=== PATIENT | female | born 1985 | race Caucasian/White ===

== ENCOUNTER 2016-08-12 15:18 | Emergency (ER) | payer MEDICAID ==
[2016-08-12 15:25] VITALS: BP 110/80
--- NOTE | 2016-08-12 15:29 | ED Physician Documentation ---
PD HPI LOWER EXT INJURY - Stated complaint Stated Complaint: L FT INJ - Chief complaint Chief Complaint: Ext Problem - History obtained from History obtained from: Patient - History of Present Illness PD HPI LOW EXT INJURY LOCATION: Left (Jumped out of bed yesterday and ran down the stairs, no fall. She's had severe pain at the plantar proximal aspect of the left foot since which radiates up the calf and down towards the toes.) Review of Systems Constitutional: denies: Fever, Chills : denies: Now EGA Musculoskeletal: denies: Neck pain, Back pain, Extremity swelling PD PAST MEDICAL HISTORY - Past Medical History Psych: Depression - Past Surgical History Past Surgical History: Yes - Present Medications Home Medications: Ambulatory Orders Medication Instructions Recorded Confirmed HYDROcod/ACETAM 5/325 [[place] 5/325] 1 - 2 ea PO Q6H PRN #15 tablet 08/12/16 Meloxicam [Mobic] 7.5 mg PO BIDWM PRN #15 tablet 08/12/16 - Allergies Allergies/Adverse Reactions: Allergies Allergy/AdvReac Type Severity Reaction Status Date / Time No Known Drug Allergies Allergy Verified 03/29/15 20:55 - Social History Does the pt smoke?: No Smoking Status: Never smoker Does the pt drink ETOH?: Yes Does the pt have substance abuse?: No - Immunizations Immunizations are current?: Yes PD ED PE NORMAL - Vitals Vital signs reviewed: Yes - General General: Alert and oriented X 3, No acute distress - Extremities Extremities: Other (Left foot is tender to the plantar fascia and calcaneus, less so the Achilles tendon, Achilles function is intact. No calf tenderness.) - Neuro Neuro: Alert and oriented X 3, Normal speech - Psych Psych: Normal mood, Normal affect Results - Vitals Vitals: Vital Signs - 24 hr 08/12/16 15:20 Temperature 36.5 C Heart Rate 82 Respiratory 20 Rate Blood Pressure 110/80 O2 Saturation 98 Oxygen O2 Source Room air - Rads (name of study) 3v L foot Radiology: EMP read contemporaneously (normal) Departure - Departure Disposition: 01 Home, Self Care Clinical Impression: Plantar fasciitis of left foot Condition: Good Record reviewed to determine appropriate education?: Yes Instructions: Fasciitis Plantar Follow-Up: Estefany Meehan DPM [Provider Admit Priv/Credential] - Prescriptions: Meloxicam [Mobic] 7.5 mg PO BIDWM PRN #15 tablet PRN Reason: Pain HYDROcod/ACETAM 5/325 [[place] 5/325] 1 - 2 ea PO Q6H PRN #15 tablet PRN Reason: Pain Comments: Wear the splint and use the crutches as needed for comfort. Return if worse. Followup with the manager engine if not improving in a week. Do the gentle stretches and exercises as we discussed. Do not drink or drive while on narcotic pain medicine. Note that many narcotic pain relievers also contain tylenol/acetaminophen. Please ensure that your total dose of acetaminophen from all sources does not exceed 3 grams (3000mg) per day. You may constipated on this medication, take a stool softener such as "Colace" twice a day while you are on it. Also recommend a [id number]-[id number] laxative such as senna or MiraLAX any day that you do not have a bowel movement. If you received narcotic pain medication in the emergency department, do not drive or operate machinery for the next 24 hours.
[2016-08-12] MEDS ORDERED: HYDROcod/ACETAM 5/325 MG TABLET ONE (15:44)
[2016-08-12] MEDS ORDERED: IBUPROFEN 800 MG TABLET PO ONE (15:45)
[2016-08-12] MEDS: IBUPROFEN 800 MG TABLET PO STA (15:50)
[2016-08-12] MEDS: HYDROcod/ACETAM 5/325 MG TABLET PO STA (15:50)
--- NOTE | 2016-08-12 16:12 | XRAY Preliminary Report ---
Exam: XR Foot 3 View LT IMPRESSION: Negative foot radiography. [facility] SITE ID: [id number]
--- NOTE | 2016-08-12 16:14 | XRAY Report ---
EXAM: Left Foot Radiography EXAM DATE: 08/12/2016 03:31 PM. CLINICAL HISTORY: Foot pain, suspect plantar fasciitis. COMPARISON: None. TECHNIQUE: 3 views. FINDINGS: Bones: No fractures or focal bony lesions. There is a plantar calcaneal enthesophyte. Joints: Normal. No subluxations. Soft Tissues: Normal. No soft tissue swelling. IMPRESSION: Negative foot radiography. [facility] Referring Provider Line: [phone] SITE ID: [id number]
== END 2016-08-12 16:16 | disposition home or self-care (01) ==
LOC: ED 15:18
DX: M72.2 Plantar fascial fibromatosis (principal)
CPT/HCPCS: 99283

== ENCOUNTER 2016-11-05 14:35 | Outpatient (CLI) | payer MEDICAID | END 2016-11-05 14:36 | disposition critical access hospital (66) | DX: R45.851 Suicidal ideations (principal) | CPT/HCPCS: A0425; A0429 ==

== ENCOUNTER 2016-11-05 14:51 | Emergency (ER) | payer MEDICAID | END 2016-11-05 22:43 | disposition home or self-care (01) | DX: F32.9 Major depressive disorder, single episode, unspecified (principal); R45.851 Suicidal ideations ==